=== PATIENT | male | born 1940 | race Caucasian/White ===

== ENCOUNTER 2018-02-28 08:57 | Outpatient (CLI) | payer MEDICARE, OTHER ==
[2016-01-03 10:30] VITALS: BP 135/80
--- NOTE | 2018-02-28 09:52 | Diagnostic Imaging Report ---
STUART ROYAL [facility] [address] [facility].[address] [id number] Report Submission Date: Feb 28, 2018 9:34:13 AM CDT Patient Study Name: GERMAN WILKES Date: Feb 28, 2018 9:02:37 AM CDT Modality Type: DX Gender: M Description: LOWER EXTREMITY : 44 Institution: [facility] Physician: STUART ROYAL Right foot History: Pain after injury 5 days ago Three views of the right foot were obtained which demonstrate soft tissue swelling of the foot, most pronounced of the forefoot. No osseous abnormalities are noted. Mineralization and alignment is normal. Impression: Soft tissue swelling of the foot, most pronounced of the forefoot. No osseous abnormality. Electronically signed on Feb 28, 2018 9:34:13 AM CDT by: Dominique GARCIA
== END 2018-02-28 09:00 ==
LOC: RAD 08:57
PROVIDERS: ATTEND Family Medicine
DX: M79.671 Pain in right foot (principal)
CPT/HCPCS: 73630

== ENCOUNTER 2018-03-22 09:07 | Outpatient (CLI) | payer MEDICARE, OTHER ==
[2016-01-03 10:30] VITALS: BP 135/80
[2018-03-22 09:40] LABS: MEAN CORPUSCULAR HEMOGLOBIN 29.5 pg (28.0-34.0)
== END 2018-03-22 11:23 ==
LOC: LAB 09:07
PROVIDERS: ATTEND Hospitalist
DX: E53.8 Deficiency of other specified B group vitamins (principal); D64.9 Anemia, unspecified
CPT/HCPCS: 36415; 82607; 85027

== ENCOUNTER 2019-02-07 14:26 | Outpatient (CLI) | payer MEDICARE, OTHER ==
[2016-01-03 10:30] VITALS: BP 135/80
[2019-02-07 14:43] LABS: BASOPHILS % 0.6 % (0.0-1.5); NEUTROPHILS # 12.5 # k/uL (1.4-7.7)
[2019-02-07 14:54] LABS: eGFR (Non-African) > 60
--- NOTE | 2019-02-09 14:18 | Diagnostic Imaging Report ---
RADHA FUENTES [facility] [address] [facility] [address] [place] [address]. [id number] Report Submission Date: Feb 07, 2019 3:24:03 PM CDT Patient Study Name: GERMAN WILKES Date: Feb 07, 2019 2:38:07 PM CDT Modality Type: DX Gender: M Description: ABD COMPLETE : 44 Institution: [facility] Physician: RADHA FUENTES Abdomen KUB Indication: Abdominal pain and constipation Findings: Frontal view of the abdomen without prior demonstrates gaseous distention of the stomach. There is scattered content throughout the colon and overlying the rectum. There is no evidence of bowel obstruction or free intraperitoneal air. Two small calcifications overlying the right kidney are present with the larger of the two measuring 2.2 mm. Impression: Increased colon and rectal content Presumed right renal calculi Electronically signed on Feb 07, 2019 3:24:03 PM CDT by: Alfredito GARCIA
== END 2019-02-07 14:28 ==
LOC: LAB 14:26
PROVIDERS: ATTEND Family Medicine
DX: K59.01 Slow transit constipation (principal)
CPT/HCPCS: 36415; 74019; 80053; 85025